=== PATIENT | female | born 1985 | race Caucasian/White ===

== ENCOUNTER 2018-09-16 18:10 | Emergency (ER) | payer MEDICAID ==
--- NOTE | 2018-09-16 18:58 | EDM.PDOC ---
ED HPI GENERAL MEDICAL PROBLEM - General Chief Complaint: Behavioral/Psych Stated Complaint: Self - Harm Time Seen by Provider: 09/16/18 18:15 Source of Information: Reports: Patient History Limitations: Reports: No Limitations - History of Present Illness INITIAL COMMENTS - FREE TEXT/NARRATIVE: Pt. presents to ER with depression and self harming behavior. She is a resident at the special care unit at [facility]. She has a history of bipolar 1 disorder and borderline personality disorder. She states that she has been upset with staff at the care center and has been upset that she has not been getting phone calls from family or friends. She was placed in the care center after she was admitted to the [facility] and previously resided by herself in [facility]. Pt. states that she is a threat to herself and states that she would harm herself by eating lotion or drinking perfume if she is returned to the [facility]. Staff states that the patient is often uncooperative and resistive to care at the care center. States that she does not like several staff members at [facility] and in requesting placement at the [facility]. Onset: Today Onset Date: 09/16/18 - Related Data Allergies Allergy/AdvReac Type Severity Reaction Status Date / Time aripiprazole [From Abilify] Allergy Unknown Verified 09/16/18 18:29 haloperidol [From Haldol] Allergy Unknown Verified 09/16/18 18:29 lurasidone [From Latuda] Allergy Unknown Verified 09/16/18 18:29 tuberculin, purified protein Allergy Unknown Verified 09/16/18 18:29 deriva ziprasidone [From Geodon] Allergy Unknown Verified 09/16/18 18:29 Home Meds: Home Meds Albuterol Sulfate [Albuterol Sulfate Hfa] 2 puff IH Q4HR PRN 09/16/18 [History] Baclofen 10 mg PO DAILY 09/16/18 [History] Baclofen 20 mg PO DAILY 09/16/18 [History] Benzonatate [Tessalon Perle] 100 mg PO DAILY 09/16/18 [History] Bisacodyl 5 mg PO DAILY PRN 09/16/18 [History] Levothyroxine Sodium [Synthroid] 75 mcg PO DAILY 09/16/18 [History] [place] Carbonate 600 mg PO DAILY 09/16/18 [History] Magnesium Oxide 500 mg PO DAILY 09/16/18 [History] Menthol/Methyl Salicylate [Bengay Greaseless Cream] 1 dose TP Q6HR PRN 09/16/18 [History] Mineral Oil/Petrolatum,White [Hydrocerin Crm] 1 dose TOP DAILY 09/16/18 [History ] Nystatin 1 each MC ASDIRECTED 09/16/18 [History] OXcarbazepine [Oxcarbazepine] 150 mg PO BID 09/16/18 [History] Oxybutynin Chloride [Oxybutynin Chloride ER] 15 mg PO DAILY 09/16/18 [History] Paliperidone Palmitate [Invega Trinza] 410 mg IM ASDIRECTED 09/16/18 [History] Phenazopyridine HCl 95 mg PO TID 09/16/18 [History] Polyethylene Glycol 3350 [MiraLAX] 17 gm PO ASDIRECTED 09/16/18 [History] Sennosides/Docusate Sodium [Senna Plus Tablet] 1 each PO DAILY 09/16/18 [History ] Sertraline HCl [Zoloft] 50 mg PO ASDIRECTED 09/16/18 [History] hydrOXYzine pamoate [Hydroxyzine Pamoate] 50 mg PO TID 09/16/18 [History] medroxyPROGESTERone Acetate [Depo-Provera] 150 mg IM ASDIRECTED 09/16/18 [ History] traMADol HCl [Tramadol HCl] 50 mg PO Q6H PRN 09/16/18 [History] Past Medical History HEENT History: Reports: Impaired Vision Respiratory History: Reports: Asthma, Bronchitis, Recurrent Gastrointestinal History: Reports: Chronic Constipation Psychiatric History: Reports: Depression, Suicide Attempt, Suicidal Ideation Social & Family History - Family History Family Medical History: Noncontributory - Tobacco Use Smoking Status *Q: Never Smoker Second Hand Smoke Exposure: No - Caffeine Use Caffeine Use: Reports: Soda - Recreational Drug Use Recreational Drug Use: No ED ROS GENERAL - Review of Systems Review Of Systems: See Below Constitutional: Reports: No Symptoms HEENT: Reports: No Symptoms Respiratory: Reports: No Symptoms Cardiovascular: Reports: No Symptoms Endocrine: Reports: No Symptoms GI/Abdominal: Reports: No Symptoms : Reports: No Symptoms Musculoskeletal: Reports: No Symptoms Skin: Reports: No Symptoms Neurological: Reports: No Symptoms Psychiatric: Reports: Anxiety, Depression, Mood Lability, Suicidal Ideation Hematologic/Lymphatic: Reports: No Symptoms Immunologic: Reports: No Symptoms ED EXAM, GENERAL - Physical Exam Exam: See Below Exam Limited By: No Limitations General Appearance: Alert, WD/WN, No Apparent Distress Respiratory/Chest: No Respiratory Distress, Lungs Clear, Normal Breath Sounds, No Accessory Muscle Use, Chest Non-Tender Cardiovascular: Normal Peripheral Pulses, Regular Rate, Rhythm, No Edema, No Gallop, No JVD, No Murmur, No Rub Psychiatric: Other (raising voice when discussing staff at [facility]. Please see HPI.) Skin Exam: Warm, Dry, Intact, Normal Color, No Rash Course - Vital Signs Last Recorded V/S: Last Vital Signs Temp 37.2 C 09/16/18 18:17 Pulse 79 09/16/18 18:17 Resp 20 09/16/18 18:17 BP 115/86 09/16/18 18:17 Pulse Ox 94 L 09/16/18 18:17 - Orders/Labs/Meds Labs: Laboratory Tests 09/16/18 09/16/18 09/16/18 Range/Units 19:25 19:25 19:25 WBC 7.9 (4.0-10.0) x10^3/uL RBC 4.29 (4.00-5.50) x10^6/uL Hgb 13.4 (12.0-16.0) g/dL Hct 39.6 (33.0-47.0) % MCV 92.3 (78.0-93.0) fL MCH 31.2 (26.0-32.0) pg MCHC 33.8 (32.0-36.0) g/dL RDW Coeff of Hubert 11.7 (10.0-15.0) % Plt Count 181 (130-400) x10^3/uL Neut % (Auto) 44.9 L (50.0-80.0) % Lymph % (Auto) 25.3 (25.0-50.0) % [place] % (Auto) 8.5 (2.0-11.0) % Eos % (Auto) 20.9 H (0.0-4.0) % Baso % (Auto) 0.4 (0.2-1.2) % PT 10.1 (10.0-12.8) SEC INR 0.9 L (2.0-3.5) Sodium 142 (136-145) mmol/L Potassium 4.0 (3.5-5.1) mmol/L Chloride 107 (98-107) mmol/L Carbon Dioxide 25 (21-32) mmol/L Anion Gap 14.0 (10-20) mmol/L BUN 20 H (7-18) mg/dL Creatinine 1.0 (0.55-1.02) mg/dL Est Cr Clr Drug Dosing TNP Estimated GFR (MDRD) > 60 Glucose 96 (74-106) mg/dL Calcium 9.1 (8.5-10.1) mg/dL Corrected Calcium 9.50 (8.5-10.1) mg/dL Phosphorus 4.1 (2.6-4.7) mg/dL Magnesium 2.1 (1.8-2.4) mg/dL Total Bilirubin 0.3 (0.2-1.0) mg/dL AST 19 (15-37) U/L ALT 31 (14-59) U/L Alkaline Phosphatase 63 (46-116) U/L Total Protein 7.0 (6.4-8.2) g/dL Albumin 3.5 (3.4-5.0) g/dL Globulin 3.5 Albumin/Globulin Ratio 1.00 TSH, Ultra Sensitive 1.164 (0.358-3.74) uIU/mL Acetaminophen 0 L (10-30) ug/ml Ethyl Alcohol < 3 (0-3) mg/dL Departure - Departure Time of Disposition: 20:10 Disposition: DC/Tfer to [facility] Clinical Impression: Depressive disorder - Discharge Information Referrals: Dean Mendosa MD [Primary Care Provider] - Forms: ED Department Discharge - Problem List Review Problem List Initiated/Reviewed/Updated: Yes - Assessment/Plan Plan: I spoke with [facility] eric Gillespieher. She feels as though the patient is not a candidate for admission to the [facility] at this time. She will be transferred back to the care center. Advised staff that the patient should be placed on suicide watch and all cosmetics, medications, etc. need to be removed from the room. She will need to be followed by social work as she does not want to be placed on the care center. Advised close follow-up with Dr. Morrison. No adjustment to medications at this time.
[2018-09-16 20:01] LABS: ACETAMINOPHEN 0 ug/ml (10-30); CHLORIDE,CL 107 mmol/L (98-107); SODIUM,NA 142 mmol/L (136-145)
== END 2018-09-16 20:18 ==
LOC: VM.ED 18:10
DX: F32.9 Major depressive disorder, single episode, unspecified (principal); J45.909 Unspecified asthma, uncomplicated; Z79.899 Other long term (current) drug therapy; Z88.7 Allergy status to serum and vaccine; Z88.8 Allergy status to other drugs, medicaments and biological substances
CPT/HCPCS: 36415; 80053; 83735; 84100; 84443; 85025; 85610; 99284; G0480

== ENCOUNTER 2018-10-16 18:55 | Emergency (ER) | payer MEDICAID ==
[2018-10-16 19:14] VITALS: BP 114/75
--- NOTE | 2018-10-16 19:20 | EDM.PDOC ---
ED HPI GENERAL MEDICAL PROBLEM - General Chief Complaint: General Stated Complaint: PSYCHOLOGICAL Time Seen by Provider: 10/16/18 19:15 Source of Information: Reports: Patient, EMS History Limitations: Reports: Uncooperative - History of Present Illness INITIAL COMMENTS - FREE TEXT/NARRATIVE: Patient comes into the emergency room by EMS with complaint of homicidal and suicidal feelings. Patient was transported from the [facility] where she is a patient in the special care unit. Patient does have a significant mental health history with bipolar diagnosis and borderline personality disorder on her diagnosis list. Patient has also had suicidal ideations and homicidal feelings in the past. She is actually in the emergency room approximately 1 month ago for similar situation. The [facility] was consulted at that time and they declined admit. She was sent back to the [place] [facility] with suicide precautions in place. Patient comes in today stating that she's had no change in her behavior over the course last month. Patient states that she feels that she continues to remain suicidal. She states she feels sad, loss of interest, guilty, hopeless, worthless, loss of interest. Patient also states she 's has a significant amount sleep disturbance. She states that she is super tired/fatigue and does not want to get out of bed. She states that her life feels worthless there is no hope for living. She also states that her family contributes to most of her discomfort dislikes. She states that her mother and father are smoking and drinking themselves to . She does state that earlier today she was talking to her mother on the telephone and she could hear the ice crystals mixing in a cup that she believes her mother was drinking an alcoholic drink. This has made her extremely angry the rest afternoon. Patient states she has also homicidal. She states that she will harm anybody who tries to stop her from committing suicide. Her plan to commit suicide is by utilizing a wire in a bra and stabbing herself in the neck or arms. She was found to have a wire from her bra in by a [employer] TE[employer] at the [facility] prior to call 911. Patient states that she will try to harm staff and other individuals if they do try to stop her from harming herself. She states that she will use force of scratching and pinching if necessary if anyone tries to stop her. Onset: Today Severity: Mild Improves with: Reports: None Worsens with: Reports: None Associated Symptoms: Reports: No Other Symptoms - Related Data Allergies Allergy/AdvReac Type Severity Reaction Status Date / Time aripiprazole [From Abilify] Allergy Unknown Verified 10/16/18 19:19 haloperidol [From Haldol] Allergy Unknown Verified 10/16/18 19:19 lurasidone [From Latuda] Allergy Unknown Verified 10/16/18 19:19 tuberculin, purified protein Allergy Unknown Verified 10/16/18 19:19 deriva ziprasidone [From Geodon] Allergy Unknown Verified 10/16/18 19:19 Home Meds: Home Meds Albuterol Sulfate [Albuterol Sulfate Hfa] 2 puff IH Q4HR PRN 09/16/18 [History] Baclofen 20 mg PO DAILY 09/16/18 [History] Baclofen 30 mg PO BID 09/16/18 [History] Bisacodyl 5 mg PO DAILY PRN 09/16/18 [History] Levothyroxine Sodium [Synthroid] 75 mcg PO DAILY 09/16/18 [History] [place] Carbonate 900 mg PO DAILY 09/16/18 [History] Magnesium Oxide 500 mg PO DAILY 09/16/18 [History] Menthol/Methyl Salicylate [Bengay Greaseless Cream] 1 dose TP Q6HR PRN 09/16/18 [History] OXcarbazepine [Oxcarbazepine] 450 mg PO BID 09/16/18 [History] Oxybutynin Chloride [Oxybutynin Chloride ER] 15 mg PO DAILY 09/16/18 [History] Paliperidone Palmitate [Invega Trinza] 410 mg IM ASDIRECTED 09/16/18 [History] Phenazopyridine HCl 95 mg PO TID 09/16/18 [History] Sennosides/Docusate Sodium [Senna Plus Tablet] 1 each PO DAILY 09/16/18 [History ] Sertraline HCl [Zoloft] 200 mg PO ASDIRECTED 09/16/18 [History] medroxyPROGESTERone Acetate [Depo-Provera] 150 mg IM ASDIRECTED 09/16/18 [ History] traMADol HCl [Tramadol HCl] 50 mg PO Q6H PRN 09/16/18 [History] Calcium Carbonate/Vitamin D3 [Calcium 250+D] 1 each PO BID 10/16/18 [History] Cholecalciferol (Vitamin D3) [Vitamin D3] 5,000 unit PO DAILY 10/16/18 [History] LORazepam [Ativan] 0.5 mg PO BID 10/16/18 [History] Multivitamin [Multivitamins] 1 each PO DAILY 10/16/18 [History] Vitamin B Complex 1 each PO DAILY 10/16/18 [History] Zinc Oxide [Desitin] 113 gm TP DAILY 10/16/18 [History] Past Medical History HEENT History: Reports: Impaired Vision Respiratory History: Reports: Asthma, Bronchitis, Recurrent Gastrointestinal History: Reports: Chronic Constipation Psychiatric History: Reports: Depression, Suicide Attempt, Suicidal Ideation Social & Family History - Family History Family Medical History: Noncontributory - Caffeine Use Caffeine Use: Reports: Soda ED ROS GENERAL - Review of Systems Review Of Systems: ROS reveals no pertinent complaints other than HPI. Constitutional: Reports: No Symptoms HEENT: Reports: No Symptoms Respiratory: Reports: No Symptoms Cardiovascular: Reports: No Symptoms Endocrine: Reports: No Symptoms GI/Abdominal: Reports: No Symptoms : Reports: No Symptoms Musculoskeletal: Reports: No Symptoms Skin: Reports: No Symptoms ED EXAM, GENERAL - Physical Exam Exam: See Below (Agitated, aggressive, verbally insulting others, waving arms and fists around an air) Exam Limited By: No Limitations General Appearance: Alert, WD/WN, No Apparent Distress Head: Atraumatic, Normocephalic Neck: Normal Inspection, Supple Respiratory/Chest: No Respiratory Distress, Lungs Clear, Normal Breath Sounds, No Accessory Muscle Use, Chest Non-Tender Cardiovascular: Normal Peripheral Pulses, Regular Rate, Rhythm, No Edema GI/Abdominal: Normal Bowel Sounds, Soft, Non-Tender, No Distention, No Abnormal Bruit Back Exam: Normal Inspection, Full Range of Motion Extremities: Normal Inspection, Normal Range of Motion, No Pedal Edema Neurological: Alert, Oriented Psychiatric: Depressed Mood, Other Skin Exam: Warm, Dry, Intact Course - Vital Signs Last Recorded V/S: Last Vital Signs Temp 37.6 C 10/16/18 19:11 Pulse 91 10/16/18 19:11 Resp 20 10/16/18 19:11 BP 114/75 10/16/18 19:11 Pulse Ox 93 L 10/16/18 19:11 - Orders/Labs/Meds Labs: Laboratory Tests 10/16/18 10/16/18 Range/Units 07:35 07:35 WBC 9.5 (4.0-10.0) x10^3/uL RBC 4.50 (4.00-5.50) x10^6/uL Hgb 13.8 (12.0-16.0) g/dL Hct 41.3 (33.0-47.0) % MCV 91.8 (78.0-93.0) fL MCH 30.7 (26.0-32.0) pg MCHC 33.4 (32.0-36.0) g/dL RDW Coeff of Hubert 11.9 (10.0-15.0) % Plt Count 178 (130-400) x10^3/uL Neut % (Auto) 53.5 (50.0-80.0) % Lymph % (Auto) 24.5 L (25.0-50.0) % [place] % (Auto) 7.6 (2.0-11.0) % Eos % (Auto) 14.1 H (0.0-4.0) % Baso % (Auto) 0.3 (0.2-1.2) % Sodium 140 (136-145) mmol/L Potassium 3.8 (3.5-5.1) mmol/L Chloride 104 (98-107) mmol/L Carbon Dioxide 25 (21-32) mmol/L Anion Gap 14.8 (10-20) mmol/L BUN 20 H (7-18) mg/dL Creatinine 0.9 (0.55-1.02) mg/dL Est Cr Clr Drug Dosing TNP Estimated GFR (MDRD) > 60 Glucose 155 H (74-106) mg/dL Calcium 8.8 (8.5-10.1) mg/dL Corrected Calcium 8.80 (8.5-10.1) mg/dL Total Bilirubin 0.4 (0.2-1.0) mg/dL AST 21 (15-37) U/L ALT 36 (14-59) U/L Alkaline Phosphatase 69 (46-116) U/L Total Protein 7.7 (6.4-8.2) g/dL Albumin 4.0 (3.4-5.0) g/dL Globulin 3.7 Albumin/Globulin Ratio 1.08 Meds: Medications Discontinued Medications Generic Name Dose Route Start Last Admin Trade Name Freq PRN Reason Stop Dose Admin Olanzapine Confirm 10/16/18 19:42 10/16/18 19:40 Zyprexa Administered 10/16/18 19:43 10 mg Dose Administration 10 mg .ROUTE .STK-MED ONE - Re-Assessments/Exams Free Text/Narrative Re-Assessment/Exam: 10/16/18 21:11 Pt is calm and watching TV. Departure - Departure Time of Disposition: 19:45 Disposition: DC/Tfer to Psych Hosp/Unit 65 Condition: Fair Clinical Impression: Aggression Suicidal behavior Qualifiers: Attempted self-injury: with attempted self-injury Qualified Code(s): T14.91XA - Suicide attempt, initial encounter - Discharge Information *PRESCRIPTION DRUG MONITORING PROGRAM REVIEWED*: Not Applicable *COPY OF PRESCRIPTION DRUG MONITORING REPORT IN PATIENT ARJUN: Not Applicable Referrals: Dean Mendosa MD [Primary Care Provider] - Forms: Interfacility Transfer EMTALA, ED Department Discharge - Problem List Review Problem List Initiated/Reviewed/Updated: Yes - Assessment/Plan Assessment:: 1. Suicidal with plan and want to harming others who try and help/stop her Plan: 1. Labs completed in ER. results reviewed with the patient 2. UA ordered but patient refusing to give UA 3. Patient became verbally aggressive and was threatening to harm staff and would not cooperate. She had spit coming form her mouth as she was yelling and swinging her arms around. Police were contacted and a one time dose of Zyprexa 10mg IM given. 3. [facility] contacted at 1930 regarding case. [employer] obtained info. Did try to talk with patient however pt unwilling. She states she will try and arrange for an admit. 2109 Nursing staff from the [facility] called back and need to discuss further regarding patient. 4. [address] [facility] called back and Anjana SANTO accepted care. Pt will go via BLS transport. 5. All questions and concerns were addressed prior to discharge
[2018-10-16] MEDS: OLANZapine 10 MG Vial ONE (19:40)
[2018-10-16 20:07] LABS: ANION GAP 14.8 mmol/L (10-20); CHLORIDE,CL 104 mmol/L (98-107); SODIUM,NA 140 mmol/L (136-145)
== END 2018-10-16 21:45 ==
LOC: VM.ED 18:55
DX: T14.91XA Suicide attempt, initial encounter (principal); J45.909 Unspecified asthma, uncomplicated; F32.9 Major depressive disorder, single episode, unspecified; Z88.8 Allergy status to other drugs, medicaments and biological substances; Z88.7 Allergy status to serum and vaccine; Z79.899 Other long term (current) drug therapy; F60.3 Borderline personality disorder; X58.XXXA Exposure to other specified factors, initial encounter
CPT/HCPCS: 36415; 80053; 85025; 96372; 99285; J3490